=== PATIENT | female | born 1965 | race Caucasian/White ===

== ENCOUNTER 2023-02-19 20:44 | Emergency (ER) | payer OTHER ==
[2023-02-19 21:13] VITALS: BP_SYST 111; PULSE 76; RESP 19; TEMP 97.9; O2SAT 100
[2023-02-19] MEDS ORDERED: DIATR MEGLU/DIATRIZ SOD 30 ML SOLUTION PO ONE (21:28)
[2023-02-19 22:12] VITALS: BP_SYST 135; PULSE 74; RESP 18; TEMP 97.3; O2SAT 97
== END 2023-02-19 22:12 | disposition home or self-care (01) ==
LOC: SED 20:44
DX: K94.23 Gastrostomy malfunction (principal); Z79.899 Other long term (current) drug therapy
CPT/HCPCS: 99284; 43762; 74240; Q9964; 99283